=== PATIENT | female | born 1935 | race African-American/Black ===

== ENCOUNTER 2022-01-10 10:11 | Outpatient (CLI) | payer OTHER | END 2022-01-10 10:18 | disposition home or self-care (01) | LOC: RAD 10:11 | PROVIDERS: ATTEND Physical Medicine & Rehabilitation | DX: M25.512 Pain in left shoulder (principal); W19.XXXA Unspecified fall, initial encounter ==

== ENCOUNTER 2022-02-07 15:13 | Outpatient (CLI) | payer OTHER | END 2022-02-07 15:19 | disposition home or self-care (01) | LOC: RAD 15:13 | PROVIDERS: ATTEND Physical Medicine & Rehabilitation | DX: M54.6 Pain in thoracic spine (principal); M54.50 Low back pain, unspecified ==